=== PATIENT | female | born 1980 | race Caucasian/White ===

== ENCOUNTER 2017-04-17 10:07 | Inpatient (IN) | payer BC, OTHER ==
[~2017-04-17] VITALS: Ht 165.1 cm; Wt 61.4 kg
[~2017-04-17 10:07] MED LIST: AUGM875T PO
[2017-04-17 10:11] VITALS: BP 149/91; PULSE 73; RESP 16; TEMP 97.9; O2SAT 100
[2017-04-17] MEDS ORDERED: LORA-392 PO (10:21)
[2017-04-17] MEDS ORDERED: DICY20TA10 PO (10:21)
[2017-04-17] MEDS ORDERED: PROM25TA10 PO (10:21)
[2017-04-17] MEDS ORDERED: MORPHINE SULFATE 4 MG/ML INJ IV PUSH ONE (10:30)
[2017-04-17] MEDS ORDERED: SODIUM CHLOR 0.9% 1000 ML INJ 1,000 ML IV ONE (10:30)
[2017-04-17] MEDS ORDERED: ONDANSETRON HCL 4 MG/2 ML VIAL IV PUSH ONE ×2 (10:30→12:15)
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
[2017-04-17 10:36] LABS: AUTOMATED NEUTROPHIL # 3.4 TH/MM3 (1.8-7.7); BASOPHIL % 0.5 % (0.0-2.0); EOSINOPHIL # 0.1 TH/MM3 (0-0.4); EOSINOPHIL % 2.8 % (0.0-4.0); HEMATOCRIT 40.4 % (35.0-46.0); HEMO FLAGS DIFF FINAL; LYMPH % 22.5 % (9.0-44.0); LYMPHOCYTE # 1.2 TH/MM3 (1.0-4.8); MEAN CELL VOLUME 106.1 FL (80.0-100.0); MONO % 9.6 % (0.0-8.0); NEUT % 64.6 % (16.0-70.0); PLATELET COUNT 136 TH/MM3 (150-450); RED BLOOD COUNT 3.81 MIL/MM3 (4.00-5.30); RED CELL DISTRIBUTION WIDTH 13.7 % (11.6-17.2); WHITE BLOOD COUNT 5.3 TH/MM3 (4.0-11.0)
[2017-04-17 10:45] LABS: CHLORIDE 103 MEQ/L (98-107); POTASSIUM 3.5 MEQ/L (3.5-5.1); SODIUM (NA) 135 MEQ/L (136-145)
[2017-04-17 10:50] LABS: ANION GAP 10 MEQ/L (5-15); BICARBONATE 21.7 MEQ/L (21.0-32.0); BLOOD UREA NITROGEN 5 MG/DL (7-18)
[2017-04-17 10:53] LABS: ALT (GPT) 45 U/L (10-53); AST (GOT) 67 U/L (15-37); GLOMERULAR FILTRATION RATE 112 ML/MIN (>89)
[2017-04-17 10:55] LABS: TOTAL BILIRUBIN ADULT 0.9 MG/DL (0.2-1.0)
[2017-04-17 10:56] LABS: ALKALINE PHOSPHATASE 59 U/L (45-117)
[2017-04-17] MEDS ORDERED: IOHEXOL 350 MG/ML 10 ML VIAL (for RAD DIAG) IVCONTRAST ONE (11:15)
[2017-04-17 11:27] VITALS: BP 135/89; PULSE 73; RESP 18; O2SAT 99
--- NOTE | 2017-04-17 11:35 | RADRPT ---
EXAM DATE/TIME: 04/17/2017 11:08 [facility] COMPARISON: CT ABDOMEN & PELVIS W CONTRAST, February 21, 2011, 18:50. INDICATIONS : Epigastric pain, nausea and vomiting. IV CONTRAST: 85 cc Omnipaque 350 (iohexol) IV ORAL CONTRAST: No oral contrast ingested. RADIATION DOSE: 6.30 CTDIvol (mGy) MEDICAL HISTORY : Pancreatitis. Gall stones. SURGICAL HISTORY : None. ENCOUNTER: Initial ACUITY: 2 days PAIN SCALE: 6/10 LOCATION: Epigastric TECHNIQUE: Volumetric scanning of the abdomen and pelvis was performed. Using automated exposure control and ad justment of the mA and/or kV according to patient size, radiation dose was kept as low as reasonably achievable to obtain optimal diagnostic quality images. DICOM format image data is available electro nically for review and comparison. FINDINGS: LOWER LUNGS: The visualized lower lungs are clear. LIVER: Of the liver measures 18 cm in length and demonstrates a lobulated contour posteriorly with density c haracteristic of severe steatosis. There are several calcifications along the right liver capsule sev eral of which are new from the prior study. There is no dilation of the biliary tree. No calcified gallstones. SPLEEN: Normal size without lesion. PANCREAS: There are is induration/inflammation of the fat surrounding the head and uncinate process. Pancreatic body and tail demonstrate no abnormality. There is no duct dilatation. No pancreatic calcifications. KIDNEYS: Normal in size and shape. There is no mass, stone or hydronephrosis. ADRENAL GLANDS: Within normal limits. VASCULAR: There is no aortic aneurysm. BOWEL/MESENTERY: There is mild wall thickening/wall edema of the second portion of the duodenum. The stomach and remai homa duodenum demonstrate no abnormality. There are no signs of obstruction. More distal small bowel is within normal limits. No colon abnormality is identified. There is no free air or free fluid. ABDOMINAL WALL: Within normal limits. Navel piercing is present. RETROPERITONEUM: There is no lymphadenopathy. BLADDER: No wall thickening or mass. REPRODUCTIVE: Within normal limits. INGUINAL: There is no lymphadenopathy or hernia. MUSCULOSKELETAL: There are bilateral pars defects of L5. No acute osseous abnormality is present. CONCLUSION: 1. Mild inflammatory change surrounding the pancreatic head and in the pancreaticoduodenal groove. Th is most likely represents an acute pancreatitis/groove pancreatitis. Less likely, a duodenitis involv ing the second portion of the duodenum could have a similar appearance. 2. Persistent severe hepatic steatosis. Luis Mcallister MD on April 17, 2017 at 11:25 Board Certified Radiologist. This report was verified electronically.
[2017-04-17] MEDS ORDERED: MORPHINE SULFATE 8 MG/ML INJ IV PUSH ONE (12:00)
--- NOTE | 2017-04-17 12:09 | RADRPT ---
EXAM DATE/TIME: 04/17/2017 11:43 [facility] COMPARISON: CT ABDOMEN & PELVIS W CONTRAST, April 17, 2017, 11:08. INDICATIONS : Right upper quadrant pain. MEDICAL HISTORY : Pancreatitis. Anxiety. Tobacco use. SURGICAL HISTORY : Cone biopsy. ENCOUNTER: Initial ACUITY: 2 days PAIN SCORE: 6/10 LOCATION: Right upper quadrant MEASUREMENTS: LIVER: 16.1 cm length COMMON DUCT: 2 mm RIGHT KIDNEY: 11.0 x 4.7 x 6.2 cm TECH NOTE: FINDINGS: LIVER: Diffuse echogenic without focal lesion or ductal dilatation. Hepatopedal flow. COMMON DUCT: No intraluminal mass or stone visualized. GALLBLADDER: Contains no stones, demonstrates no wall thickening. Trace pericholecystic fluid. PANCREAS: The visualized portions are within normal limits. RIGHT KIDNEY: No evidence of hydronephrosis, stone, or mass. CONCLUSION: 1. No evidence for cholelithiasis however trace pericholecystic fluid. Clinical correlation. 2. Echogenic liver likely moderate hepatic steatosis. Cedric Robles MD on April 17, 2017 at 12:06 Board Certified Radiologist. This report was verified electronically.
[2017-04-17] MEDS: SODIUM CHLOR 0.45% 1000 ML INJ 1,000 ML IV SCH (13:22)
[2017-04-17 13:24] VITALS: BP 136/84; PULSE 70; RESP 18; O2SAT 100
[2017-04-17] MEDS ORDERED: diphenhydrAMINE HCL 50 MG/ML VIAL IV PUSH ONE (13:30)
[2017-04-17] MEDS ORDERED: ACETAMINOPHEN/HYDROcodone 325 MG/10 MG TAB PO PRN (17:00)
[2017-04-17] MEDS ORDERED: LORazepam 0.5 MG TAB PO PRN (17:00)
--- NOTE | 2017-04-17 17:03 | HHI.HP ---
[facility] Service [facility] Primary Care Physician Luis Aguirre, Admission Diagnosis ACUTE PANCREATITIS Diagnoses: Chief Complaint: Abdominal pain Travel History International Travel<30 Days: No Contact w/Intl Traveler <30 Da: No Traveled to Known Affected Are: No History of Present Illness 36-year-old white female being admitted for pancreatitis. Patient was in her usual state of health until about a few days ago she began experiencing a sudden onset of abdominal pain while she was at work. 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 Her pain got somewhat but today it did come back much stronger and she decided to seek medical attention. Patient states that the pain is in her bilateral upper quadrants and epigastrium, it is sharp in nature and did not truly respond adequately to Tylenol and Motrin. Patient states that she had some nausea but no vomiting or diarrhea or change in her bowel habits. Denies any fevers but reports subjective chills. Denies any dysuria. In the emergency room her lipase was over [address] showed findings suggestive of pancreatitis. US findings were remarkable for hepatic steatosis but gallbladder itself was unremarkable with no gallstones and with no CBD dilatation. Patient states that she drinks 3 large glasses/bottles of wine about 5 days a week. She says she does smoke about 5 cigarettes a day. She says that this is her third bout of pancreatitis and that her most recent one was about 10 months ago at [facility]. She was told at one point that a possible cholecystectomy would be a good option. Review of Systems Except as stated in HPI: all other systems reviewed are Neg Past Family Social History Past Medical History Two previous bouts of pancreatitis Allergies: Coded Allergies: codeine (Unverified Allergy, Severe, NAUSEA, DIARRHEA, 04/17/17) hydromorphone (Unverified Allergy, Mild, Itching, 04/17/17) PT DENIES ALLERGY 12-18-14 Family History Pancreatitis in uncle Social History Drinks, smokes, also admits to doing marijuana Physical Exam Vital Signs Vital Signs Date Time Temp Pulse Resp B/P (MAP) Pulse Ox O2 Delivery O2 Flow Rate FiO2 04/17/17 14:21 04/17/17 13:24 70 18 136/84 (101) 100 Room Air 04/17/17 11:27 73 18 135/89 (104) 99 Room Air 04/17/17 10:54 18 04/17/17 10:11 97.9 73 16 149/91 (110) 100 Physical Exam VS: Afebrile GENERAL: mild distress secondary to pain, middle-aged white female SKIN: Warm and dry. EYES: No scleral icterus. No injection or drainage. ENT: No nasal bleeding or discharge. Mucous membranes pink and moist. CARDIOVASCULAR: Regular rate and rhythm. no murmurs RESPIRATORY: No accessory muscle use. Clear to auscultation. Breath sounds equal bilaterally. GASTROINTESTINAL: Abdomen soft, diffuse mild to moderate tenderness to palpation over bilateral upper quadrants and epigastrium, suprapubic area is nontender, Extremities: No clubbing, cyanosis, or edema. No obvious deformities. MUSCULOSKELETAL: Extremities without clubbing, cyanosis, or edema. No obvious deformities. grossly intact ROM with 5/5 strength in upper and lower extremities proximally NEUROLOGICAL: Awake and alert. No obvious cranial nerve deficits. No facial droop nor slurred speech noted. PSYCHIATRIC: Appropriate mood and affect; insight and judgment normal. Laboratory Laboratory Tests Test 04/17/17 10:34 04/17/17 10:35 White Blood Count 5.3 Red Blood Count 3.81 Hemoglobin 13.3 Hematocrit 40.4 Mean Corpuscular Volume 106.1 Mean Corpuscular Hemoglobin 35.0 Mean Corpuscular Hemoglobin Concent 33.0 Red Cell Distribution Width 13.7 Platelet Count 136 Mean Platelet Volume 7.4 Neutrophils (%) (Auto) 64.6 Lymphocytes (%) (Auto) 22.5 Monocytes (%) (Auto) 9.6 Eosinophils (%) (Auto) 2.8 Basophils (%) (Auto) 0.5 Neutrophils # (Auto) 3.4 Lymphocytes # (Auto) 1.2 Monocytes # (Auto) 0.5 Eosinophils # (Auto) 0.1 Basophils # (Auto) 0.0 CBC Comment DIFF FINAL Differential Comment Blood Urea Nitrogen 5 Creatinine 0.61 Random Glucose 99 Total Protein 7.6 Albumin 3.9 Calcium Level 8.7 Alkaline Phosphatase 59 Aspartate Amino Transf (AST/SGOT) 67 Alanine Aminotransferase (ALT/SGPT) 45 Total Bilirubin 0.9 Sodium Level 135 Potassium Level 3.5 Chloride Level 103 Carbon Dioxide Level 21.7 Anion Gap 10 Estimat Glomerular Filtration Rate 112 Lipase 2689 Ethyl Alcohol Level LESS THAN 3 Result Diagram: 04/17/17 1034 04/17/17 1034 Imaging Last Impressions Gall Bladder Ultrasound 04/17/17 1105 Signed Impressions: Service Date/Time: April 11:43 - CONCLUSION: 1. No evidence for cholelithiasis however trace pericholecystic fluid. Clinical correlation. 2. Echogenic liver likely moderate hepatic steatosis. Cedric Robles MD Abdomen/Pelvis CT 04/17/17 1026 Signed Impressions: Service Date/Time: April 11:08 - CONCLUSION: 1. Mild inflammatory change surrounding the pancreatic head and in the pancreaticoduodenal groove. This most likely represents an acute pancreatitis/groove pancreatitis. Less likely, a duodenitis involving the second portion of the duodenum could have a similar appearance. 2. Persistent severe hepatic steatosis. Luis Mcallister MD Capvidhii VTE Risk Assessment Caprini VTE Risk Assessment: No/Low Risk (score <= 1) Caprini Risk Assessment Model Point Value = 1 Point Value = 2 Point Value = 3 Point Value = 5 Age 41-60 Minor surgery BMI > 25 kg/m2 Swollen legs Varicose veins or History of unexplained or recurrent spontaneous Oral contraceptives or hormone replacement Sepsis (< 1 month) Serious lung disease, including pneumonia (< 1 month) Abnormal pulmonary function Acute myocardial infarction Congestive heart failure (< 1 month) History of inflammatory bowel disease Medical patient at bed rest Age 61-74 Arthroscopic surgery Major open surgery (> 45 min) Laparoscopic surgery (> 45 min) Malignancy Confined to bed (> 72 hours) Immobilizing plaster cast Central venous access Age >= 75 History of VTE Family history of VTE Factor V Leiden Prothrombin [id number] Lupus anticoagulant Anticardiolipin antibodies Elevated serum homocysteine Heparin-induced thrombocytopenia Other congenital or acquired thrombophilia Stroke (< 1 month) Elective arthroplasty Hip, pelvis, or leg fracture Acute spinal cord injury (< 1 month) Prophylaxis Regimen Total Risk Factor Score Risk Level Prophylaxis Regimen 0-1 Low Early ambulation 2 Moderate Order ONE of the following: *Sequential Compression Device (SCD) *Heparin 5000 units SQ BID 3-4 Higher Order ONE of the following medications: *Heparin 5000 units SQ TID *Enoxaparin/Lovenox 40 mg SQ daily (WT < 150 kg, CrCl > 30 mL/min) *Enoxaparin/Lovenox 30 mg SQ daily (WT < 150 kg, CrCl > 10-29 mL/min) *Enoxaparin/Lovenox 30 mg SQ BID (WT < 150 kg, CrCl > 30 mL/min) AND/OR *Sequential Compression Device (SCD) 5 or more Highest Order ONE of the following medications: *Heparin 5000 units SQ TID (Preferred with Epidurals) *Enoxaparin/Lovenox 40 mg SQ daily (WT < 150 kg, CrCl > 30 mL/min) *Enoxaparin/Lovenox 30 mg SQ daily (WT < 150 kg, CrCl > 10-29 mL/min) *Enoxaparin/Lovenox 30 mg SQ BID (WT < 150 kg, CrCl > 30 mL/min) AND *Sequential Compression Device (SCD) Assessment and Plan Assessment and Plan Recurrent pancreatitis - Suspect that alcohol was the biggest culprit in this patient along with her tobacco use given that she has an unremarkable gallbladder ultrasound. - IV fluids with IV pain control, monitor respiratory status. My independent review of the CT abdominal film shows no significant stool retention suggestive of constipation - NPO for tonight. Transition to diet in AM as tolerable with by mouth pain meds as tolerable ETOH use - current blood level low - tranxene scheduled anxiety - home qhs ativan prn anxiety Early ambulation Physician Certification 2 Midnight Certification Type: Admission for Inpatient Services Order for Inpatient Services The services are ordered in accordance with Medicare regulations or non- Medicare payer requirements, as applicable. In the case of services not specified as inpatient-only, they are appropriately provided as inpatient services in accordance with the 2-midnight benchmark. Estimated LOS (days): 2 2 days is the estimated time the patient will need to remain in the hospital, assuming treatment plan goals are met and no additional complications. Post-Hospital Plan: Home Celso Montemayor MD Apr 17, 2017 17:03
[2017-04-17] MEDS: MORPHINE SULFATE 4 MG/ML INJ IV PUSH PRN ×2 (17:05→20:55)
[2017-04-17 17:13] VITALS: BP 127/87; PULSE 79; RESP 16; TEMP 97.5; O2SAT 99
[2017-04-17] MEDS ORDERED: ONDANSETRON HCL 4 MG/2 ML VIAL IV PUSH PRN (18:00)
[2017-04-17 20:00] VITALS: BP 135/93; PULSE 83; RESP 18; TEMP 98.6; O2SAT 100
[2017-04-18 00:01] VITALS: BP 130/95; PULSE 85; RESP 18; TEMP 97.4; O2SAT 99
[2017-04-18] MEDS: MORPHINE SULFATE 8 MG/ML INJ IV PUSH PRN ×2 (01:48→06:49)
[2017-04-18] MEDS: SODIUM CHLOR 0.45% 1000 ML INJ 1,000 ML IV SCH (01:49)
[2017-04-18 08:00] VITALS: BP 112/77; PULSE 79; RESP 14; TEMP 97.4; O2SAT 98
[2017-04-18] MEDS ORDERED: ACETAMINOPHEN/HYDROcodone 325 MG/7.5 MG TAB PO PRN (08:30)
[2017-04-18 09:36] VITALS: RESP 20
--- NOTE | 2017-04-18 13:25 | HHI.DCPOC ---
Discharge Care Plan Diagnosis: (1) Acute pancreatitis Goals to Promote Your Health * To prevent worsening of your condition and complications * To maintain your health at the optimal level Directions to Meet Your Goals Take your medications as prescribed Follow your dietary instruction Follow activity as directed Keep your appointments as scheduled Take your immunizations and boosters as scheduled If your symptoms worsen call your PCP, if no PCP go to Urgent Care Center or Emergency Room Smoking is Dangerous to Your Health. Avoid second hand smoke Call the 24-hour hour crisis hotline for domestic abuse at Cullen Aguirre Apr 18, 2017 13:25
[2017-04-18] MEDS ORDERED: NORC5TAB PO (13:30)
[2017-04-18] MEDS ORDERED: CHLO5CAP4 PO (13:30)
--- NOTE | 2017-04-18 15:00 | HHI.PR ---
Subjective Remarks Patient reports that her pain is much better. Nursing denies any deterioration since last night. Patient tolerated her breakfast of clear liquids and lunch low-fat mechanical diet well without any worsening of her pain. Objective Vital Signs Date Time Temp Pulse Resp B/P (MAP) Pulse Ox O2 Delivery O2 Flow Rate FiO2 04/18/17 09:36 20 04/18/17 08:00 97.4 79 14 112/77 (89) 98 04/18/17 02:48 18 04/18/17 00:01 97.4 85 18 130/95 (107) 99 04/17/17 21:55 18 04/17/17 20:00 98.6 83 18 135/93 (107) 100 04/17/17 17:13 97.5 79 16 127/87 (100) 99 I/O 04/17/17 04/17/17 04/17/17 04/18/17 04/18/17 04/18/17 07:00 15:00 23:00 07:00 15:00 23:00 Intake Total 1000 ml 1330 ml 358 ml Balance 1000 ml 1330 ml 358 ml Intake Oral 80 ml 358 ml IV Total 1000 ml 1250 ml # Voids 5 # Bowel Movements 0 Result Diagram: 04/17/17 1034 04/17/17 1034 Objective Remarks abd: soft NT, ND, no rebound A/P Assessment and Plan Alcoholic pancreatitis - clinically significantly improved. Patient tolerating by mouth intake well with by mouth medication. Patient was counseled extensively on the importance of cutting down on alcohol. She was also informed about the fatty changes of her liver noted on the CT scan and that her being at a young age is very concerning and that she needs to stop drinking. She was very receptive to this advice. She was also counseled on the importance of discontinuing tobacco use as soon as possible. I recommended to her that through her primary care physician she may receive medical pharmacological assistance in quitting this as well once she has recovered from her pancreatitis completely. Patient verbalized understanding. Patient has met maximal benefit from hospitalization and is clinically stable for discharge. Celso Montemayor MD Apr 18, 2017 15:00
== END 2017-04-18 15:42 | disposition home or self-care (01) | DRG 440 ==
LOC: PHED 10:07 → PHEDA 12:50 → PH3A 14:18
PROVIDERS: ADMIT Hospitalist; ATTEND Hospitalist
DX: K85.20 Alcohol induced acute pancreatitis without necrosis or infection (principal); K76.0 Fatty (change of) liver, not elsewhere classified; F17.210 Nicotine dependence, cigarettes, uncomplicated; Z72.89 Other problems related to lifestyle; F12.90 Cannabis use, unspecified, uncomplicated
CPT/HCPCS: 74177; 76705; 80053; 80307; 83690; 85025; 96361; 96374; 96375; 96376; J1200; J2270; J2405; J7030; Q9967